=== PATIENT | male | born 1960 | race Caucasian/White ===

== ENCOUNTER 2016-06-03 22:36 | Observation (INO) | payer OTHER ==
[2016-06-03] MEDS ORDERED: NS 2,000 ML IV ONE (23:03)
--- NOTE | 2016-06-03 23:12 | UCPHY ---
H & P Patient Type: New Chief Complaint Nursing Narrative: was on trip in [facility], has had diarrhea for last few days, vomited x 1 Time Seen by Provider: 06/03/16 23:03 HPI/ROS: While in [facility] on vacation for 1 week this patient developed diarrhea on Friday, 3 days prior to arrival here and he started Cipro 500 mg twice daily for his symptoms. He describes increasing frequency of loose watery stools since that time S frequent is every 1-2 hours over the past 24 hours he developed lightheadedness today that has been progressive. He did vomit once this morning after he tried eating a banana but did tolerate a hamburger this evening without vomiting. At the moment he has no nausea but she does complain of ongoing lightheadedness whenever he is seated upright or standing. He only has mild abdominal cramping shortly prior to diarrhea but otherwise no abdominal pain. No other associated symptoms except fevers. He describes onset of rigors while in [facility] and subjective fever since that time that felt low- grade over the past 24 hours to him. He has not taken his temperature at home. ROS: Constitutional:, fatigue. Fevers as noted in HPI HEENT: No recent URI symptoms. No other HEENT complaints. Pulmonary: No shortness of breath. No coughing. Cardiovascular: No chest pain. He does not notice his palpitations with AFib. GI: No hematemesis or coffee-ground emesis. No bloody stools. : No urinary symptoms integumentary: No skin rash. Endocrine: No symptoms 10 point ROS is otherwise negative Source: Patient Exam Limitations: No limitations - Medical/Surgical History PMH: Atrial fibrillation was recently diagnosed by vice president of compliance and Shirley (He doesn't recall her name) Echocardiogram and stress test 3 weeks ago were normal per his verbal report. Hypothyroid Hypertension with typical baseline blood pressure for him on meds of 120/74 Hypercholesterolemia Other PMH: htn, hypothyroid, a fib - Family History Significant Family History: No pertinent family hx - Social History Smoking Status: Never smoked Alcohol Use: Occasionally Drug Use: None - Physical Exam Exam: Initial vital signs notable for hypertension to the high 70s systolic General Appearance: Pale and fatigued appearing male Eyes: Pupils equal and round no pallor or injection. ENT, Mouth: Mucous membranes moist. Respiratory: There are no retractions, lungs are clear to auscultation. Cardiovascular: Irregularly irregular with no murmur gallop rub. No JVD or peripheral edema Gastrointestinal: Hyperactive bowel sounds, soft, no focal tenderness. No guarding or rebound. No organomegaly. : No testicular tenderness. Neurological: GCS of 15. No focal sensory or motor deficits Skin: Pale but warm. No diaphoresis Musculoskeletal: Neck is supple nontender. Extremities are symmetrical, full range of motion. Psychiatric: Mood and affect normal DIFFERENTIAL DIAGNOSIS: After history and physical exam differential diagnosis was considered for knee traveler's diarrhea, other dysentery, dehydration, metabolic disarray, sepsis Constitutional: Initial Vital Signs Temperature (C) 37 C 06/03/16 22:54 Heart Rate 103 H 06/03/16 22:54 Respiratory Rate 18 06/03/16 22:54 Blood Pressure 80/54 L 06/03/16 22:54 O2 Sat (%) 97 06/03/16 22:54 O2 Delivery Mode Room Air Allergies/Adverse Reactions: No Known Allergies Allergy (Unverified 06/03/16 22:53) Home Medications: Medication Instructions Recorded Eliquis 06/03/16 SIMVASTATIN 06/03/16 Thyroid Med 06/03/16 Medical Decision Making - Diagnostics EKG Interpretation: 12 lead EKG performed 2311 reveals atrial fib at 97 Intervals: Normal except for prolonged QTC of 43 axis: QRS of-55, T of 74 overall assessment AFib with left anterior fascicular block and prolonged QT ED Course/Re-evaluation: Monitor, normal saline bolus with improving blood pressure The patient's mentation is intact. He has no other sources of potential infection identified other than the GI tract. I suspect this patient has hypotension attributable to significant dehydration. Differential diagnosis also includes potential sepsis/septic shock I spoke with Dr. wakefield the-emergency physician at [facility] Emergency Department accepts patient for transfer. After 1st 800 mL normal saline his mean arterial pressures improved to 74 Review of his labs reveals the mildly elevated lactate 2.4 and low potassium of 2.6. CBC is normal with no significant anemia At 11:27 p.m. patient is comfortable 1st L nearly infused meter to a pressure of 79, ambulance transport SUBSTANCE ABUSE THERAPIST 10 minutes - Data Points Laboratory Results: Laboratory Results 06/03/16 23:01 06/03/16 23:01 03/27/17 03/27/17 03/27/17 23:01 23:01 23:01 WBC 8.66 10^3/uL 10^3/uL (3.80-9.50) RBC 5.29 10^6/uL 10^6/uL (4.40-6.38) Hgb 16.0 g/dL g/dL (13.7-17.5) Hct 43.4 % % (40.0-51.0) MCV 82.0 fL fL (81.5-99.8) MCH 30.2 pg pg (27.9-34.1) MCHC 36.9 g/dL H g/dL (32.4-36.7) RDW 12.1 % % (11.5-15.2) Plt Count 179 10^3/uL 10^3/uL (150-400) MPV 12.1 fL H fL (8.7-11.7) Neut % (Auto) Not Reported Lymph % (Auto) Not Reported Wheeler % (Auto) Not Reported Eos % (Auto) Not Reported Baso % (Auto) Not Reported Nucleat RBC Rel Count 0.0 % % (0.0-0.2) Absolute Neuts (auto) Not Reported Absolute Lymphs (auto) Not Reported Absolute Monos (auto) Not Reported Absolute Eos (auto) Not Reported Absolute Basos (auto) Not Reported Absolute Nucleated RBC 0.00 10^3/uL 10^3/uL (0-0.01) Immature Gran % Not Reported Immature Gran # Not Reported Platelet Estimate Pending VBG Lactic Acid 2.4 mmol/L H mmol/L (0.7-2.1) Sodium 133 mEq/L L mEq/L (134-144) Potassium 2.6 mEq/L L* mEq/L (3.5-5.2) Chloride 91 mEq/L L mEq/L (97-110) Carbon Dioxide 27 mEq/l mEq/l (22-31) Anion Gap 15 mEq/L mEq/L (8-16) BUN 23 mg/dL mg/dL (7-23) Creatinine 1.3 mg/dL mg/dL (0.7-1.3) Estimated GFR 57 Glucose 199 mg/dL H mg/dL (70-100) Calcium 8.1 mg/dL L mg/dL (8.5-10.4) Medications Given: Discontinued Medications Sodium Chloride (Ns) 2,000 mls @ 0 mls/hr IV ONCE ONE PRN Reason: Wide Open Stop: 06/03/16 23:04 Last Admin: 06/03/16 23:05 Dose: 2,000 mls Departure - Departure Disposition: [facility] Inpatient Acute Clinical Impression: Dehydration, Travelers' diarrhea, Hypokalemia Hypotension Qualifiers: Hypotension type: other hypotension type Qualified Code(s): I95.89 - Other hypotension Atrial fibrillation Qualifiers: Atrial fibrillation type: chronic Qualified Code(s): I48.2 - Chronic atrial fibrillation Condition: Serious Referrals: NONE *PRIMARY CARE P,. [Primary Care Provider] - As per Instructions - PQRS PQRS Measurement: NA
--- NOTE | 2016-06-03 23:14 | CPEKG ---
Heart Rate: 97 RR Interval: 619 QRSD Interval: 104 QT Interval: 412 QTC Interval: 524 QRS [place]: -55 T Wave [place]: 74 EKG Severity - ABNORMAL ECG - EKG Impression: ATRIAL FIBRILLATION, V-RATE 63-127 EKG Impression: LEFT ANTERIOR FASCICULAR BLOCK EKG Impression: BORDERLINE R WAVE PROGRESSION, ANTERIOR LEADS EKG Impression: PROLONGED QT INTERVAL Electronically Signed By: Melchor Hector 03-Jun-2016 23:18:25
[2016-06-03 23:16] LABS: ADD MORPH? NO; ATYPICAL LYMPHOCYTE FLAG 30 (0-99); FRAGMENT RBC FLAG 0 (0-99); HEMATOCRIT 43.4 % (40.0-51.0); LIPEMIA HEMOLYSIS FLAG 90 (0-99); MEAN CELL HEMOGLOBIN 30.2 pg (27.9-34.1); MEAN CELL HEMOGLOBIN CONCENTR. 36.9 g/dL (32.4-36.7); MEAN PLATELET VOLUME 12.1 fL (8.7-11.7); PLATELET CLUMPS FLAG 0 (0-99); PLATELET COUNT 179 10^3/uL (150-400); RED BLOOD CELL COUNT 5.29 10^6/uL (4.40-6.38); RED CELL DISTRIBUTION WIDTH 12.1 % (11.5-15.2)
[2016-06-03 23:17] LABS: ADD DIFF? YES; LEFT SHIFT FLG 110 (0-99)
[2016-06-03 23:18] LABS: ADD SCAN? NO
[2016-06-03 23:19] LABS: CALCIUM 8.1 mg/dL (8.5-10.4); CREATININE 1.3 mg/dL (0.7-1.3)
[2016-06-03 23:20] LABS: POTASSIUM 2.6 mEq/L (3.5-5.2)
[2016-06-03 23:33] LABS: LARGE PLATELETS PRESENT; PLATELET ESTIMATE ADEQUATE (ADEQ)
[2016-06-04] MEDS ORDERED: POTASSIUM CL 20 MEQ PKT PO ONE (00:17)
[2016-06-04] MEDS ORDERED: POTASSIUM Cl (KCl) 100 ML IV ONE (00:18)
[2016-06-04] MEDS ORDERED: NS 1,000 ML IV ONE (01:03)
[2016-06-04] MEDS ORDERED: ACETAMINOPHEN 325 MG TAB PO PRN (02:01)
[2016-06-04] MEDS ORDERED: HYDROCODONE/APAP 5/325 TAB PO PRN (02:01)
[2016-06-04] MEDS ORDERED: ONDANSETRON 4 MG/2 ML VIAL IVP PRN (02:01)
[2016-06-04] MEDS ORDERED: ONDANSETRON DISINTEGRATING 4 MG TAB PO PRN (02:01)
[2016-06-04] MEDS ORDERED: PROTOCOL MAGNESIUM 1 DOSE IV PRN (02:06)
[2016-06-04] MEDS ORDERED: PROTOCOL POTASSIUM 1 DOSE MISC PRN (02:06)
[2016-06-04] MEDS ORDERED: MAGNESIUM SULF 2 GM/WATER 50 ML IV ONE (02:17)
[2016-06-04] MEDS: POTASSIUM Cl (KCl) 20 MEQ in 1/2 NS 1,000 ML IV SCH ×2 (02:29→12:45)
--- NOTE | 2016-06-04 02:29 | PDGENHP ---
History and Physical - Chief Complaint diarrhea - History of Present Illness Patient is a 55 year old male with hypertension, HLD, afib on systemic anticoagulation who presented to the [facility] with complaint of diarrhea and lightheadedness. Patient has been in [facility] for the past 1 week for vacation/ water conservation mission when he developed diarrhea on 06/01. He describes the initial stool as greenish color, watery, without blood. The following day he started on Cipro 500 mg bid, but the frequency and volume of stool continued to worsen. He reports having a BM at least every 1-2 hours day and night. By today , patient started to feel dizzy on standing and generalized fatigue and weakness , although he denies any falls or LOC. Since symptom onset he has also had decreased PO intake, has mild diffuse abdominal cramping, vomited once this morning, but then was able to eat dinner prior to arrival at the [facility]. He also reports subjective fever and chills since 06/02, but denies any associated palpitations, chest pain, palpitations, cough, shortness of breath or dysuria. On arrival to the [facility], patient was noted to be afebrile but significantly hypotensive. He was given IVF resuscitation and transferred to the [facility] ED for further evaluation. Labs revealed elevated lactic acid and severe hypokalemia. EKG showed afib, rate stable with slight QT prolongation. IVF resuscitation and electrolyte repletion was continued in the ED and patient was admitted to the ED for further management. History Information - Allergies/Home Medication List Allergies/Adverse Reactions: No Known Allergies Allergy (Unverified 06/04/16 00:15) Home Medications: Eliquis 06/03/16 [Last Taken Unknown] SIMVASTATIN 06/03/16 [Last Taken Unknown] Thyroid Med 06/03/16 [Last Taken Unknown] I have personally reviewed and updated: family history, medical history, social history, surgical history - Past Medical History Additional medical history: Atrial fibrillation, recently diagnosed, on eliquis. Hypertension. Hyperlipidemia. hypothyroidism - Surgical History Reports: appendectomy - Family History Additional family history: M: CAD, DM2 - Social History Smoking Status: Never smoked Alcohol Use: Occasionally Drug Use: None Additional social history: Patient is self-employed, works from home. Lives with . Review of Systems ROS: 10pt was reviewed & negative except for what was stated in HPI & below Physical Exam Temp Pulse Resp BP Pulse Ox 36.8 C 122 H 15 102/81 H 95 06/04/16 00:23 06/04/16 02:03 06/04/16 02:03 06/04/16 02:03 06/04/16 02:03 Constitutional: no apparent distress, appears nourished, not in pain Eyes: PERRL, anicteric sclera, EOMI Ears, Nose, Mouth, Throat: moist mucous membranes, hearing normal, ears appear normal, no oral mucosal ulcers Cardiovascular: no murmur, rub, or gallop, irregularly irregular, pulses symmetric bilaterally, No JVD, No edema Peripheral Pulses: 2+: dorsalis-pedis (R), dorsalis-pedis (L) Respiratory: no respiratory distress, no rales or rhonchi, clear to auscultation Gastrointestinal: normoactive bowel sounds, soft, non-tender abdomen, no palpable masses, tenderness (mild diffuse tenderness), No guarding, No rebound, No distension Genitourinary: no bladder fullness, no bladder tenderness Skin: warm, normal color, no rashes or abrasions, no fluctuance, no induration, No mottled Musculoskeletal: full muscle strength, no muscle tenderness, normal joint ROM, no joint effusions Neurologic: AAOx3, sensation intact bilaterally, CN II-XII Intact, No weakness, No numbness, No facial droop Psychiatric: interacting appropriately, not anxious, not encephalopathic, thought process linear Lab Data & Imaging Review 06/03/16 23:01 06/03/16 23:01 WBC 8.66 10^3/uL (3.80-9.50) 06/03/16 23:01 RBC 5.29 10^6/uL (4.40-6.38) 06/03/16 23:01 Hgb 16.0 g/dL (13.7-17.5) 06/03/16 23:01 Hct 43.4 % (40.0-51.0) 06/03/16 23:01 MCV 82.0 fL (81.5-99.8) 06/03/16 23:01 MCH 30.2 pg (27.9-34.1) 06/03/16 23:01 MCHC 36.9 g/dL (32.4-36.7) H 06/03/16 23:01 RDW 12.1 % (11.5-15.2) 06/03/16 23:01 Plt Count 179 10^3/uL (150-400) 06/03/16 23:01 MPV 12.1 fL (8.7-11.7) H 06/03/16 23:01 Neut % (Auto) Not Reported 06/03/16 23:01 Lymph % (Auto) Not Reported 06/03/16 23:01 Douglas % (Auto) Not Reported 06/03/16 23:01 Eos % (Auto) Not Reported 06/03/16 23:01 Baso % (Auto) Not Reported 06/03/16 23:01 Nucleat RBC Rel Count 0.0 % (0.0-0.2) 06/03/16 23:01 Absolute Neuts (auto) Not Reported 06/03/16 23:01 Absolute Lymphs (auto) Not Reported 06/03/16 23:01 Absolute Monos (auto) Not Reported 06/03/16 23:01 Absolute Eos (auto) Not Reported 06/03/16 23:01 Absolute Basos (auto) Not Reported 06/03/16 23:01 Absolute Nucleated RBC 0.00 10^3/uL (0-0.01) 06/03/16 23:01 Immature Gran % Not Reported 06/03/16 23:01 Seg Neutrophils % 37 % 06/03/16 23:01 Band Neutrophils % 37 % 06/03/16 23:01 Lymphocytes % 19 % 06/03/16 23:01 Monocytes % 7 % 06/03/16 23:01 Immature Gran # Not Reported 06/03/16 23:01 Absolute Seg Neuts 3.2 K/MM3 (1.8-7) 06/03/16 23:01 Absolute Band Neuts 3.2 K/MM3 (0-0.7) H 06/03/16 23:01 Absolute Lymphocytes 1.6 K/mm3 (1.0-4.8) 06/03/16 23:01 Absolute Monocytes 0.6 K/mm3 (0-0.8) 06/03/16 23:01 RBC/WBC/PLT Morphology NORMAL (NORMAL) 06/03/16 23:01 Atypical Lymphocytes 1+ H 06/03/16 23:01 Platelet Estimate ADEQUATE (ADEQ) 06/03/16 23:01 Large Platelets PRESENT H 06/03/16 23:01 VBG Lactic Acid 2.1 mmol/L (0.7-2.1) 06/04/16 00:30 Sodium 133 mEq/L (134-144) L 06/03/16 23:01 Potassium 2.6 mEq/L (3.5-5.2) L* 06/03/16 23:01 Chloride 91 mEq/L (97-110) L 06/03/16 23:01 Carbon Dioxide 27 mEq/l (22-31) 06/03/16 23:01 Anion Gap 15 mEq/L (8-16) 06/03/16 23:01 BUN 23 mg/dL (7-23) 06/03/16: Creatinine 1.3 mg/dL (0.7-1.3) 06/03/16 23: Estimated GFR 57 06/03/16: Glucose 199 mg/dL (70-100) H 06/03/16 23: Calcium 8.1 mg/dL (8.5-10.4) L 06/03/16: Magnesium 1.4 mg/dL (1.6-2.3) L 06/04/16 00:30 Visualized and Interpreted EKG results: Yes EKG additional interpertation: afib, 97 bpm, slight QT prolongation; no st/t wave changes Assessment & Plan Assessment: Patient is a 55/M with HTN, AFib, HLD and hypothyroidism who presents with complaint of profuse diarrhea in setting or recent travel to [facility]. On presentation, patient was found to be hypotensive, dehydration and with moderately severe electrolyte abnormalities (hypokalemia, hypomagnesemia). Plan: # acute diarrhea Appears consistent with traveler's diarrhea. Patient does not have fever, leukocytosis or symptoms of colitis. GI panel has been sent, will wait for results before initiating antibiotic therapy. Will continue supportive care with IVF resuscitations, electrolyte repletions and pain/nausea control. Will hold off on imodium until c diff has been ruled out. # hypotension, elevated lactic acid Patient's report of the volume and frequency of stools, as well as his presentation hypotensive and orthostatic, is consistent with acute dehydration due to GI loss. Symptoms, blood pressure and lactic acid have improved after 3L NS boluses. Suspect lactic acidosis is due to severe volume depletion, not severe sepsis. Will continue IVF hydration overnight and hold off on antibiotics at this time. # hypokalemia, hypomagnesemia Due GI lossess. EKG does show mild QT prolongation, possibly due to electrolyte abnormalities. Will aggressively replete electrolytes, monitor EKGs. # atrial fibrillation HR is at a stable rate, EKG shows afib without evidence of ischemia. Patient denies any bloody stools, so will continue Eliquis. # chronic hypertension Patient hypotensive due to acute volume loss, so will hold anti-hypertensives until BP stabilizes. # hypothyroidism Check TSh and cont synthroid. # dispo: admit to observation status # gen: Clear liquid diet DVT ppx: on eliquis Full code
[2016-06-04 04:43] LABS: ANION GAP 8 mEq/L (8-16); CALCIUM 7.5 mg/dL (8.5-10.4); CARBON DIOXIDE 26 mEq/l (22-31); CHLORIDE 103 mEq/L (97-110); GLOMERULAR FILTRATION RATE > 60; GLUCOSE 128 mg/dL (70-100); MAGNESIUM 2.1 mg/dL (1.6-2.3); POTASSIUM 3.2 mEq/L (3.5-5.2); SODIUM 137 mEq/L (134-144)
[2016-06-04 05:01] LABS: ADD MORPH? NO; ADD SCAN? YES; ATYPICAL LYMPHOCYTE FLAG 0 (0-99); FRAGMENT RBC FLAG 0 (0-99); HEMATOCRIT 38.3 % (40.0-51.0); HEMOGLOBIN 14.2 g/dL (13.7-17.5); LIPEMIA HEMOLYSIS FLAG 90 (0-99); MEAN CELL HEMOGLOBIN 30.2 pg (27.9-34.1); MEAN CELL HEMOGLOBIN CONCENTR. 37.1 g/dL (32.4-36.7); MEAN CELL VOLUME 81.5 fL (81.5-99.8); MEAN PLATELET VOLUME 12.1 fL (8.7-11.7); PLATELET CLUMPS FLAG 10 (0-99); PLATELET COUNT 144 10^3/uL (150-400)
[2016-06-04] MEDS ORDERED: POTASSIUM CL 10 MEQ TAB PO ONE ×3 (05:02→20:09)
[2016-06-04 05:05] LABS: LEFT SHIFT FLG 120 (0-99)
[2016-06-04 05:36] LABS: ADD DIFF? YES; SCAN POSITIVE
[2016-06-04] MEDS ORDERED: PROTOCOL K PHOSPHATE 1 DOSE IV PRN (05:41)
[2016-06-04 05:43] LABS: PLATELET ESTIMATE ADEQUATE (ADEQ); POLYCHROMASIA 1+
[2016-06-04] MEDS ORDERED: K PHOS 10 MMOL in D5W 250 ML IV ONE (05:46)
--- NOTE | 2016-06-04 07:07 | EDPHY ---
H & P Chief Complaint Nursing Narrative: was on trip in [facility], has had diarrhea for last few days, vomited x 1 Time Seen by Provider: 06/03/16 23:03 HPI/ROS: HPI The patient presents with hypotension, brought in by ambulance from the [facility] where he was being evaluated for diarrhea. The patient was on a 1 week vacation to [facility] and developed diarrhea about 4 days ago. He started ciprofloxacin twice daily 3 days ago. Since then he has had increasing frequency of diarrhea, every 1-2 hours without any bleeding. Today he developed lightheadedness. At [facility] he was noted to have a systolic blood pressure in the 80s and appeared dehydrated. He was given IV fluids and basic labs were checked. His potassium has returned at 2.6. He feels better with the IV fluids though his blood pressure remains low. He says his normal blood pressures are in the 120s to 130 systolic. REVIEW OF SYSTEMS Constitutional: No fever, no chills. Eyes: No discharge. ENT: No sore throat. Cardiovascular: No chest pain, no palpitations. Respiratory: No cough, no shortness of breath. Gastrointestinal: No abdominal pain, no vomiting. Genitourinary: No hematuria. Musculoskeletal: No back pain. Skin: No rashes. Neurological: No headache. PMHx: Recently diagnosed with atrial fibrillation Soc Hx: Recently visited [facility] PHYSICAL General Appearance: Alert, no distress Eyes: Pupils equal and round no pallor or injection ENT, Mouth: Mucous membranes dry Respiratory: There are no retractions, lungs are clear to auscultation Cardiovascular: Regular rate and rhythm Gastrointestinal: Abdomen is soft and non-tender, no masses, bowel sounds normal Neurological: A&O, moves all extremities Skin: Warm and dry, no rashes Musculoskeletal: Neck is supple non tender Extremities: symmetrical, full range of motion Psychiatric: Patient is oriented X 3, there is no agitation Source: Patient, Old records Exam Limitations: No limitations - Personal History Current Tetanus/Diphtheria Vaccine: Yes Current Tetanus Diphtheria and Acellular Pertussis (TDAP): Yes - Medical/Surgical History Hx Asthma: No Hx Chronic Respiratory Disease: No Hx Diabetes: No Hx Cardiac Disease: Yes Hx Renal Disease: No Hx Cirrhosis: No Hx Alcoholism: No Hx HIV/AIDS: No Hx Splenectomy or Spleen Trauma: No Other PMH: htn, hypothyroid, a fib - Family History Significant Family History: No pertinent family hx - Social History Smoking Status: Never smoked Constitutional: Initial Vital Signs Temperature (C) 37 C 06/03/16 22:54 Heart Rate 103 H 06/03/16 22:54 Respiratory Rate 18 06/03/16 22:54 Blood Pressure 80/54 L 06/03/16 22:54 O2 Sat (%) 97 06/03/16 22:54 O2 Delivery Mode Room Air Allergies/Adverse Reactions: No Known Allergies Allergy (Unverified 06/04/16 00:15) Home Medications: Medication Instructions Recorded Eliquis 06/03/16 SIMVASTATIN 06/03/16 Thyroid Med 06/03/16 Medical Decision Making Differential Diagnosis: This is a 55-year-old relatively healthy man with new diagnosis of atrial fibrillation who presents with hypotension in the setting of dehydration and diarrhea. He is transferred from the [facility]. He is feeling somewhat better after fluids though continues to feel slightly lightheaded. On exam, he is still somewhat hypotensive. Labs have returned and demonstrate hypokalemia. I plan to continue IV fluid hydration with supplemental potassium. We will send blood in stool cultures. He will be admitted to the hospitalist service, I have discussed the case with . - Data Points Laboratory Results: Laboratory Results 06/03/16 23:01 06/03/16 23:01 06/04/16 06/04/16 06/03/16 00:30 00:30 23:01 WBC RBC Hgb Hct MCV MCH MCHC RDW Plt Count MPV Neut % (Auto) Lymph % (Auto) Barnes % (Auto) Eos % (Auto) Baso % (Auto) Nucleat RBC Rel Count Absolute Neuts (auto) Absolute Lymphs (auto) Absolute Monos (auto) Absolute Eos (auto) Absolute Basos (auto) Absolute Nucleated RBC Immature Gran % Seg Neutrophils % Band Neutrophils % Lymphocytes % Monocytes % Immature Gran # Absolute Seg Neuts Absolute Band Neuts Absolute Lymphocytes Absolute Monocytes RBC/WBC/PLT Morphology Atypical Lymphocytes Platelet Estimate Large Platelets VBG Lactic Acid 2.1 mmol/L mmol/L (0.7-2.1) Sodium 133 mEq/L L mEq/L (134-144) Potassium 2.6 mEq/L L* mEq/L (3.5-5.2) Chloride 91 mEq/L L mEq/L (97-110) Carbon Dioxide 27 mEq/l mEq/l (22-31) Anion Gap 15 mEq/L mEq/L (8-16) BUN 23 mg/dL mg/dL (7-23) Creatinine 1.3 mg/dL mg/dL (0.7-1.3) Estimated GFR 57 Glucose 199 mg/dL H mg/dL (70-100) Calcium 8.1 mg/dL L mg/dL (8.5-10.4) Magnesium 1.4 mg/dL L mg/dL (1.6-2.3) 06/03/16 06/03/16 23:01 23:01 WBC 8.66 10^3/uL 10^3/uL (3.80-9.50) RBC 5.29 10^6/uL 10^6/uL (4.40-6.38) Hgb 16.0 g/dL g/dL (13.7-17.5) Hct 43.4 % % (40.0-51.0) MCV 82.0 fL fL (81.5-99.8) MCH 30.2 pg pg (27.9-34.1) MCHC 36.9 g/dL H g/dL (32.4-36.7) RDW 12.1 % % (11.5-15.2) Plt Count 179 10^3/uL 10^3/uL (150-400) MPV 12.1 fL H fL (8.7-11.7) Neut % (Auto) Not Reported Lymph % (Auto) Not Reported Barnes % (Auto) Not Reported Eos % (Auto) Not Reported Baso % (Auto) Not Reported Nucleat RBC Rel Count 0.0 % % (0.0-0.2) Absolute Neuts (auto) Not Reported Absolute Lymphs (auto) Not Reported Absolute Monos (auto) Not Reported Absolute Eos (auto) Not Reported Absolute Basos (auto) Not Reported Absolute Nucleated RBC 0.00 10^3/uL 10^3/uL (0-0.01) Immature Gran % Not Reported Seg Neutrophils % 37 % % Band Neutrophils % 37 % % Lymphocytes % 19 % % Monocytes % 7 % % Immature Gran # Not Reported Absolute Seg Neuts 3.2 K/MM3 K/MM3 (1.8-7) Absolute Band Neuts 3.2 K/MM3 H K/MM3 (0-0.7) Absolute Lymphocytes 1.6 K/mm3 K/mm3 (1.0-4.8) Absolute Monocytes 0.6 K/mm3 K/mm3 (0-0.8) RBC/WBC/PLT Morphology NORMAL (NORMAL) Atypical Lymphocytes 1+ H Platelet Estimate ADEQUATE (ADEQ) Large Platelets PRESENT H VBG Lactic Acid 2.4 mmol/L H mmol/L (0.7-2.1) Sodium Potassium Chloride Carbon Dioxide Anion Gap BUN Creatinine Estimated GFR Glucose Calcium Magnesium Medications Given: Discontinued Medications Sodium Chloride (Ns) 2,000 mls @ 0 mls/hr IV ONCE ONE PRN Reason: Wide Open Stop: 06/03/16 23:04 Last Admin: 06/03/16 23:05 Dose: 2,000 mls Potassium Chloride (Potassium Cl 10 Meq (Premix)) 100 mls @ 100 mls/hr IV EDNOW ONE Stop: 06/04/16 01:17 Last Admin: 06/04/16 00:38 Dose: 100 mls Sodium Chloride (Ns) 1,000 mls @ 0 mls/hr IV ONCE ONE PRN Reason: Wide Open Stop: 06/04/16 01:04 Last Admin: 06/04/16 01:15 Dose: 1,000 mls Magnesium Sulfate (Magnesium Sulf 2 Gm (Premix)) 50 mls @ 50 mls/hr IV ONCE ONE Stop: 06/04/16 03:16 Last Admin: 06/04/16 02:33 Dose: 50 mls Potassium Chloride (Klor Packets) 40 meq PO EDNOW ONE Stop: 06/04/16 00:18 Last Admin: 06/04/16 00:38 Dose: 40 meq Potassium Chloride (Klor-Con) 40 meq PO ONCE ONE PRN Reason: Protocol Stop: 06/04/16 05:03 Last Admin: 06/04/16 05:19 Dose: 40 meq Departure - Departure Disposition: [facility] In[facility] Acute Clinical Impression: Dehydration, Travelers' diarrhea, Hypokalemia Hypotension Qualifiers: Hypotension type: other hypotension type Qualified Code(s): I95.89 - Other hypotension Atrial fibrillation Qualifiers: Atrial fibrillation type: chronic Qualified Code(s): I48.2 - Chronic atrial fibrillation Condition: Fair
[2016-06-04 08:12] LABS: POTASSIUM 3.4 mEq/L (3.5-5.2)
--- NOTE | 2016-06-04 09:14 | CPEKG ---
Heart Rate: 139 RR Interval: 432 QRSD Interval: 92 QT Interval: 336 QTC Interval: 511 QRS [place]: -63 T Wave [place]: 79 EKG Severity - ABNORMAL ECG - EKG Impression: ATRIAL FIBRILLATION, V-RATE 91-165 EKG Impression: LEFT ANTERIOR FASCICULAR BLOCK EKG Impression: BORDERLINE T ABNORMALITIES, ANT-LAT LEADS EKG Impression: PROLONGED QT INTERVAL EKG Impression: No significant change from June 03, 2016 Electronically Signed By: William Valencia 04-Jun-2016 18:40:22
--- NOTE | 2016-06-04 11:01 | HOSPPROG ---
Hospitalist Progress Note Assessment/Plan: DIAGNOSES: -acute traveler's diarrhea with Campylobacter and for ongoing frequent bloody stools -continuing malaria prophylaxis for recent travel to [place] -hypotension -Mild metabolic acidosis PLANS: -continue IV fluids and electrolyte replacement -Discontinue quinolone -Continue doxycycline for malaria prophylaxis -will add azithromycin. I discussed in detail with the patient and his the options of using or not using antibiotic. He has 4 days into this infection and might have his much is a week of ongoing diarrheal illness. As he is self-employed this is the very difficult for him financially and he would like to try an get better faster possible -continue reassess his status daily and when he is able to manage with oral replacements will consider discharge home -Due to the hemorrhagic colitis will avoid antidiarrheals SUBJECTIVE: Still having frequent bloody stools, with mild cramping, no fever Very poor appetite so far but no emesis OBJECTIVE Vitals reviewed: Hypotensive through most of the night but blood pressure is coming up better now, no fever [employer], my review shows sinus rhythm Exam: alert oriented skin warm dry color ok resps not labored lungs clear BSs heart regular abd soft nondistended nontender, bowel sounds present limbs warm, no edema iv site ok Laboratory data: Stool panel showing Campylobacter Objective: Vital Signs Temp Pulse Resp BP Pulse Ox 36.8 C 105 H 18 115/86 H 94 06/04/16 07:24 06/04/16 07:24 06/04/16 07:24 06/04/16 07:24 06/04/16 07:24 Laboratory Results 06/04/16 04:11 06/04/16 07:37 06/03/16 06/04/16 06/05/16 06:59 06:59 06:59 Intake Total 6485 Output Total 1400 Balance 5085 ICD10 Worksheet Patient Problems: Problems Problem Status Onset Atrial fibrillation Acute Dehydration Acute Hypokalemia Acute Hypotension Acute Travelers' diarrhea Acute
[2016-06-04] MEDS: APIXABAN 5 MG TAB PO SCH ×2 (11:38→21:28)
[2016-06-04] MEDS: DOXYCYCLINE HYCLATE 100 MG CAP/TAB PO SCH (11:38)
[2016-06-04] MEDS: AZITHROMYCIN IV 500 MG in D5W 250 ML IV SCH (12:45)
[2016-06-04] MEDS ORDERED: ATORVASTATIN CALCIUM 20 MG TAB PO SCH (18:00)
[2016-06-04] MEDS ORDERED: ASPIRIN EC 81 MG TAB PO SCH (18:00)
[2016-06-04] MEDS ORDERED: NON-FORMULARY NEW DRUG (Simvastatin [Simvastatin] 40 MG) PO SCH (18:00)
[2016-06-04] MEDS: CARVEDILOL 25 MG TAB PO SCH (18:21)
[2016-06-04 19:07] LABS: POTASSIUM 3.1 mEq/L (3.5-5.2)
[2016-06-04] MEDS: CHOLECALCIFEROL VIT D3 2,000 UNITS TAB/CAP PO SCH (21:28)
[2016-06-04] MEDS: OMEGA-3 FATTY ACIDS 1,000 MG CAP PO SCH (21:28)
[2016-06-05 05:33] LABS: MAGNESIUM 1.7 mg/dL (1.6-2.3); POTASSIUM 3.6 mEq/L (3.5-5.2)
[2016-06-05] MEDS ORDERED: LEVOTHYROXINE 175 MCG TAB PO SCH (06:00)
[2016-06-05] MEDS ORDERED: POTASSIUM CL 20 MEQ TAB PO SCH (09:00)
[2016-06-05] MEDS ORDERED: POTASSIUM CL 10 MEQ TAB PO ONE (09:08)
[2016-06-05] MEDS ORDERED: MAGNESIUM SULF 1 GM/DEXTROSE 100 ML IV ONE (09:08)
[2016-06-05] MEDS: AZITHROMYCIN IV 500 MG in D5W 250 ML IV SCH (09:20)
[2016-06-05] MEDS: CARVEDILOL 25 MG TAB PO SCH (09:20)
[2016-06-05] MEDS: OMEGA-3 FATTY ACIDS 1,000 MG CAP PO SCH (09:20)
[2016-06-05] MEDS: APIXABAN 5 MG TAB PO SCH (09:20)
[2016-06-05] MEDS: DOXYCYCLINE HYCLATE 100 MG CAP/TAB PO SCH (09:20)
[2016-06-05] MEDS: CHOLECALCIFEROL VIT D3 2,000 UNITS TAB/CAP PO SCH (09:20)
--- NOTE | 2016-06-05 10:50 | PDDCSUM ---
Discharge Summary Discharge Summary: DISCHARGE DIAGNOSES: -acute infectious traveler's diarrhea with hemorrhagic colitis, Campylobacter identified -Acute hypotension -acute renal insufficiency due to above Acute hypokalemia due to above HOSPITAL COURSE SUMMARY: -this patient had travel to [facility] for a 8 related trip and while they are contracted diarrheal illness with frequent bloody stools but without fever. There was [id number] abdominal cramping. Upon arrival here his symptoms continued and he presented here with hypotension some mild acute renal insufficiency and low potassium. Stool study showed presence of Campylobacter. He was treated with IV hydration and electrolyte replacement, and started on azithromycin. There been no complications here and his symptoms are improving though he still having some diarrheal stool. He is now however able to take in oral fluids much more easily. He has had no side effects from azithromycin. At this time is felt stable for discharge to home. He will take 2 more days of oral azithromycin at home. He is instructed on oral electrolyte and fluid replacement and to watch for complete resolution of his symptoms. MEDICATION CHANGES: He will continue to avoid his MEENA-inhibitor and diuretic for another 3-4 days depending on resolution of his symptoms He will continue 2 more days of azithromycin FOLLOW-UP PLAN: With primary care if his symptoms do not resolve Greater than 35 minutes bedside and care coordination time today
[2016-06-05 11:51] VITALS: O2SAT 96
[2016-06-05] MEDS ORDERED: K PHOS 10 MMOL in D5W 250 ML IV ONE (12:00)
[2016-06-05 15:33] VITALS: BP 105/78; PULSE 98; RESP 18; TEMP 98
== END 2016-06-05 17:16 | disposition home or self-care (01) ==
LOC: CED 22:36 → F2W 06-04 02:13
PROVIDERS: ADMIT Internal Medicine; ATTEND Internal Medicine
DX: A04.5 Campylobacter enteritis (principal); E86.0 Dehydration; I95.9 Hypotension, unspecified; E87.6 Hypokalemia; N28.9 Disorder of kidney and ureter, unspecified; I48.2 Chronic atrial fibrillation
CPT/HCPCS: 93005; 96360; 99203; G0378; 80048-PO; 83605-PO; 85025-PO; G0463-PO; J0456; J3475